=== PATIENT | male | born 1965 | race Caucasian/White ===

== ENCOUNTER 2019-08-10 05:11 | Day surgery (SDC) | payer OTHER ==
[2019-08-08 17:09] VITALS: BMI 23.6
--- NOTE | 2019-08-10 08:08 | HP ---
[facility]ellite H - Chief Complaint Chief Complaint: left knee pain - Past Medical History Allergies/Adverse Reactions: Allergies Allergy/AdvReac Type Severity Reaction Status Date / Time Penicillins Allergy Intermediate Rash Verified 08/08/19 17:09 tree nut Allergy Intermediate Vomiting Verified 08/08/19 17:10 - Current Medications Current Medications: Home Medications Medication Instructions Recorded Carbamazepine [Tegretol -] 200 mg PO HS 08/08/19 Oxycodone HCl/Acetaminophen 1 tab PO Q6H #20 tablet MDD 4 08/10/19 [Percocet 5-325 mg Tablet] Satellite Physical Exam - Physical Examination General Appearance: Well Nourished, Well Developed, Alert & Oriented x3 ENT: Clear Lung: Normal air movement Heart: Regular rate & rhythm Extremities: Other (left knee- + swelling, + ttp, dec rom, + mcmurrays, nvi, MRI + mt) Neurological: Intact, Alert, Oriented Satellite Impression/Plan - Impression/Plan Impression: left knee internal derangement Operative Procedure: left knee arthroscopy Date to be Performed: 08/10/19
[2019-08-10] MEDS ORDERED: LIDOCAINE 1%-EPI 1:100,000 30 ML MDV IJ ONE (09:47)
[2019-08-10] MEDS ORDERED: BUPIVACAINE HCL/PF 0.5% (5 MG/ML) 30 ML VIAL IJ ONE (09:47)
[2019-08-10] MEDS ORDERED: MIDAZOLAM HCL 2 MG/2 ML SINGLE DOSE VIAL ONE (09:59)
[2019-08-10] MEDS ORDERED: PROPOFOL 20 ML ONE (09:59)
[2019-08-10] MEDS ORDERED: LIDOCAINE 1%/EPI 1:100000 (50 ML MULTI DOSE VIAL) INF ONE ×2 (10:23→10:30)
[2019-08-10] MEDS ORDERED: KETOROLAC TROMETHAMINE 30 MG/1 ML VIAL ONE (10:26)
[2019-08-10] MEDS ORDERED: LIDOCAINE HCL/PF 2% SDV 5ML VIAL ONE (10:26)
[2019-08-10] MEDS ORDERED: DEXAMETHASONE SOD PHOSPHATE 4 MG/1 ML VIAL ONE (10:26)
[2019-08-10] MEDS ORDERED: BUPIVACAINE HCL/PF 0.5% (5MG/ML) 10 ML VIAL IJ ONE ×2 (10:30→10:40)
[2019-08-10] MEDS ORDERED: EPHEDRINE SULFATE/0.9% NACL/PF 50 MG/10 ML SYRINGE NR ONE (10:41)
--- NOTE | 2019-08-10 10:53 | OP ---
Operative Note - Note: Operative Date: 08/10/19 Pre-Operative Diagnosis: internal derangement left knee Operation: arthroscopy left knee with partial medial meniscectomy and excision of plica Post-Operative Diagnosis: Same as Pre-op Surgeon: Mark Marquis Anesthesia: General Estimated Blood Loss (mls): 0 Operative Report Dictated: Yes
[2019-08-10] MEDS ORDERED: oxyCODONE HCL 5 MG TABLET PO PRN (11:36)
[2019-08-10] MEDS ORDERED: ONDANSETRON 4 MG/2 ML VIAL IVPUSH PRN (11:36)
[2019-08-10] MEDS ORDERED: LACTATED RINGERS SOLUTION 1,000 ML IV SCH (11:45)
--- NOTE | 2019-08-10 11:53 | OP ---
DATE OF OPERATION: 08/10/2019 PREOPERATIVE DIAGNOSIS: Internal derangement, left knee. POSTOPERATIVE DIAGNOSIS: Internal derangement, left knee. PROCEDURE: Arthroscopy, left knee, partial medial meniscectomy, and excision of synovial plica. SURGEON: Mark Marquis MD ANESTHESIA: LMA. CLOSURES: 4-0 nylon. COMPLICATIONS: None. CONDITION: To recovery room in stable condition. DESCRIPTION OF PROCEDURE: Patient was taken to the operating room on August 10, 2019. General anesthesia with LMA was administered by the anesthesiologist. Left lower extremity was prepped and draped in the usual sterile fashion. The medial and lateral infrapatellar portal sites were infiltrated with 1% Xylocaine with epinephrine. Both portals were made with 15 blade blunt trocar. The scope with trocar was placed in the lateral infrapatellar portal and opened in suprapatellar pouch. The pouch was inflated with a cocktail of 10 mL 1% Xylocaine, 10 mL 0.5% Marcaine, and 20 mL of arthroscopic saline. After allowing the anesthetic to work inside the knee, the procedure was performed. The pouch was visualized to be clean. The medial and lateral gutters were visualized to be clean. Patella and trochlea were visualized to be basically intact. There was a large synovial thickened plica that was draping over the medial femoral condyle, which was abrading it during flexion and extension. This was debrided using the shaver. With valgus stress on the knee, the medial compartment was entered. The medial meniscus was visualized and probed. Found to have a tear of its posterior horn. This was debrided back to smooth and stable meniscal tissue using a meniscal biter and arthroscopic shaver. The medial femoral condyle had some mild changes and was left intact as was the medial tibial plateau. At 90 degrees, the ACL was visualized and probed and found to be intact. In the figure-4 position, lateral compartment was entered. Lateral meniscus was visualized and probed and found to be intact. Lateral femoral condyle was run and found to be intact as was the lateral tibial plateau. The knee was irrigated with copious amounts of irrigation. Portals were closed using 4-0 nylon. Prior to closure, 20 mL of 0.5% Marcaine was infused into the knee for postoperative analgesia through the outflow portal. Patient awakened from anesthesia and transferred to recovery in stable condition. No complications. Estimated blood loss negligible. MARK MARQUIS M.D. [id number]
[2019-08-10 13:45] VITALS: BP 118/59; PULSE 61; TEMP 98
== END 2019-08-10 13:05 | disposition home or self-care (01) ==
LOC: JASU-SURG 05:11
PROVIDERS: ATTEND Orthopaedic Surgery
PROC: 0SBD4ZZ Excision of Left Knee Joint, Percutaneous Endoscopic Approach (ICD-10-PCS; 2019-08-10)
PROC: 0SBD4ZZ Excision of Left Knee Joint, Percutaneous Endoscopic Approach (ICD-10-PCS; principal; 2019-08-10 10:00)
DX: S83.242A Other tear of medial meniscus, current injury, left knee, initial encounter (principal); X58.XXXA Exposure to other specified factors, initial encounter; Y93.89 Activity, other specified; Y92.9 Unspecified place or not applicable; Y99.9 Unspecified external cause status
CPT/HCPCS: 94760

== ENCOUNTER 2023-07-24 23:24 | Inpatient (IN) | payer OTHER ==
[2023-07-25] MEDS ORDERED: ONDANSETRON 4 MG/2 ML VIAL IVPUSH ONE (00:45)
[2023-07-25] MEDS ORDERED: ONDANSETRON 4 MG/2 ML VIAL ONE (01:01)
[2023-07-25 01:12] LABS: BASO % 0.5 % (0-2.0); EOS % 0.7 % (0-4.5); HEMOGLOBIN 12.5 GM/dL (11.7-16.9); LYMPH % 15.8 % (8-40); MCH 30.6 pg (25.7-33.7); MCHC 34.6 g/dl (32.0-35.9); MEAN CELL VOLUME 88.5 fl (80-96); MEAN PLT VOLUME 8.1 fl (7.5-11.1); PLATELET COUNT 148 10^3/uL (134-434); RBC 4.07 M/mm3 (4.00-5.60); RDW 13.6 % (11.9-15.9); WHITE BLOOD COUNT 8.4 K/mm3 (4.0-10.0)
[2023-07-25 01:26] LABS: INR 1.11 (0.83-1.09); PROTHROMBIN TIME (PATIENT) 12.9 SEC (9.7-13.0)
[2023-07-25 01:28] LABS: POTASSIUM 4.2 mmol/L (3.5-5.1)
[2023-07-25 01:29] LABS: ACTIVATED PTT 27.6 SECONDS (25.2-36.5)
[2023-07-25 01:30] LABS: CALCIUM 8.9 mg/dL (8.5-10.1)
[2023-07-25 01:31] LABS: ALBUMIN 3.8 g/dl (3.4-5.0); BLOOD UREA NITROGEN 18.8 mg/dL (7-18)
[2023-07-25 01:34] LABS: CREATININE 1.3 mg/dL (0.55-1.3)
[2023-07-25 01:35] LABS: BILIRUBIN,TOTAL 0.4 mg/dL (0.2-1); TOT PROT 7.4 g/dl (6.4-8.2)
[2023-07-25 02:11] LABS: ERYTHROCYTE SEDIMENTATION RATE 23 mm/hr (0-20)
[2023-07-25] MEDS ORDERED: DALBAVANCIN HCL 1,500 MG in DEXTROSE 5%-WATER - 500 ML IVPB ONE (03:23)
[2023-07-25] MEDS ORDERED: DALBAVANCIN HCL 500 MG VIAL (RESTRICTED TO ID ONLY) IVPB ONE (04:26)
[2023-07-25] MEDS ORDERED: VANCOMYCIN 1,000 MG in DEXTROSE 5%-WATER - 250 ML IVPB SCH (09:30)
[2023-07-25] MEDS ORDERED: KETOROLAC TROMETHAMINE 15 MG/ML VIAL IVPUSH PRN (09:32)
[2023-07-25] MEDS ORDERED: ACETAMINOPHEN 500 MG TABLET (FP) PO PRN (09:32)
[2023-07-25] MEDS ORDERED: VANCOMYCIN 1 GRAM (PRE-DOCKED) 1,000 MG/250 ML BAG IVPB ONE (09:56)
[2023-07-25] MEDS ORDERED: VANCOMYCIN/WATER FOR INJ (PEG) 1,000 MG/200 ML BAG IVPB SCH ×2 (10:33→22:00)
[2023-07-25] MEDS ORDERED: CEFEPIME 2 GM/100 ML BAG IVPB ONE (11:05)
[2023-07-25] MEDS: CEFEPIME 2 GM in DEXTROSE 5%-WATER 100 ML IVPB SCH ×2 (12:08→21:33)
[2023-07-25 15:23] VITALS: RESP 18; BMI 24.3
[2023-07-25] MEDS: carBAMazepine 200 MG TABLET PO SCH (21:32)
[2023-07-26 09:25] LABS: BASO % 0.3 % (0-2.0); EOS % 0.7 % (0-4.5); HEMATOCRIT 39.9 % (35.4-49); HEMOGLOBIN 13.4 GM/dL (11.7-16.9); LYMPH % 14.8 % (8-40); MCH 30.3 pg (25.7-33.7); MCHC 33.7 g/dl (32.0-35.9); MEAN CELL VOLUME 89.9 fl (80-96); MEAN PLT VOLUME 8.4 fl (7.5-11.1); MONO % 11.1 % (3.8-10.2); NEUT % 73.1 % (42.8-82.8); PLATELET COUNT 165 10^3/uL (134-434); RBC 4.43 M/mm3 (4.00-5.60); RDW 13.4 % (11.9-15.9); WHITE BLOOD COUNT 9.4 K/mm3 (4.0-10.0)
[2023-07-26 09:40] LABS: POTASSIUM 4.2 mmol/L (3.5-5.1)
[2023-07-26 09:44] LABS: BLOOD UREA NITROGEN 12.8 mg/dL (7-18); CALCIUM 8.7 mg/dL (8.5-10.1)
[2023-07-26 09:47] LABS: CREATININE 1.2 mg/dL (0.55-1.3)
[2023-07-26] MEDS ORDERED: VANCOMYCIN/WATER FOR INJ (PEG) 1,000 MG/200 ML BAG IVPB SCH ×2 (10:00→22:00)
[2023-07-26] MEDS: CEFEPIME HCL 2 GM VIAL (RESTRICTED TO ID) IVPB SCH (19:42)
[2023-07-26] MEDS: carBAMazepine 200 MG TABLET PO SCH (21:03)
[2023-07-27 10:05] LABS: BASO % 0.4 % (0-2.0); EOS % 1.5 % (0-4.5); HEMATOCRIT 38.3 % (35.4-49); HEMOGLOBIN 13.5 GM/dL (11.7-16.9); LYMPH % 23.8 % (8-40); MCH 30.8 pg (25.7-33.7); MCHC 35.3 g/dl (32.0-35.9); MEAN CELL VOLUME 87.4 fl (80-96); MONO % 11.7 % (3.8-10.2); NEUT % 62.6 % (42.8-82.8); PLATELET COUNT 182 10^3/uL (134-434); RBC 4.38 M/mm3 (4.00-5.60); RDW 13.4 % (11.9-15.9); WHITE BLOOD COUNT 7.2 K/mm3 (4.0-10.0)
[2023-07-27 10:32] LABS: CALCIUM 8.7 mg/dL (8.5-10.1)
[2023-07-27 10:33] LABS: ALBUMIN 3.1 g/dl (3.4-5.0); BLOOD UREA NITROGEN 14.5 mg/dL (7-18); MAGNESIUM 2.2 mg/dL (1.8-2.4)
[2023-07-27 10:36] LABS: CREATININE 1.1 mg/dL (0.55-1.3)
[2023-07-27 10:37] LABS: BILIRUBIN,TOTAL 0.2 mg/dL (0.2-1); TOT PROT 6.8 g/dl (6.4-8.2)
[2023-07-27 14:12] VITALS: BP 108/54; PULSE 74; TEMP 98.6
== END 2023-07-27 16:14 | disposition home or self-care (01) | DRG 863 ==
LOC: JER 23:24 → JERBED 07-25 06:11 → OBSVTOIN 07-25 09:30 → J6S 07-25 14:52
PROVIDERS: ADMIT Internal Medicine; ATTEND Internal Medicine
DX: T81.40XA Infection following a procedure, unspecified, initial encounter (principal); L03.312 Cellulitis of back [any part except buttock and flank]; Y83.9 Surgical procedure, unspecified as the cause of abnormal reaction of the patient, or of later complication, without mention of misadventure at the time of the procedure; F31.9 Bipolar disorder, unspecified; M79.89 Other specified soft tissue disorders
CPT/HCPCS: 36415; 72132-TC; 72158-TC; 80048; 80053; 83735; 84100; 85025; 85610; 85651; 85730; 86140; 86850; 86900; 86901; 87040; 87070; 87186; 87205; 87635; 99285-25; A9579; G0378; J0875; Q9967